=== PATIENT | male | born 1950 | race Caucasian/White ===

== ENCOUNTER → 2023-10-08 | Outpatient (CLI) | payer MEDICARE ==
[~2023-10-08] MED LIST: Iohexol 300 - 100 ML VIAL IV ONE
== END ==
LOC: RAD 10:42
DX: I71.43 Infrarenal abdominal aortic aneurysm, without rupture (principal); J47.9 Bronchiectasis, uncomplicated; J98.09 Other diseases of bronchus, not elsewhere classified; K92.0 Hematemesis
CPT/HCPCS: Q9967